=== PATIENT | male | born 1975 | race Two or more races ===

== ENCOUNTER 2023-03-01 08:20 | Day surgery (SDC) | payer MEDICAID ==
[~2023-03-01] VITALS: Ht 182.9 cm; Wt 136.1 kg
[2023-03-01] MEDS ORDERED: SIMETHICONE 40 MG/0.6 ML ML ONE (08:29)
[2023-03-01] MEDS ORDERED: MEPERIDINE 100 MG INJ. 100 MG/ML VIAL ONE (08:30)
[2023-03-01] MEDS ORDERED: MIDAZOLAM HCL 5 MG/5 ML VIAL ONE ×2 (08:30→09:36)
[2023-03-01 09:30] VITALS: O2SAT 98
[2023-03-01 16:19] VITALS: BP_SYST 132; PULSE 81; RESP 21; TEMP 97.8
== END 2023-03-01 11:00 | disposition home or self-care (01) ==
LOC: SDS 08:20 → SMU 08:22 → SDS 11:00
PROVIDERS: ATTEND Internal Medicine Gastroenterology
DX: Z12.11 Encounter for screening for malignant neoplasm of colon (principal); D12.2 Benign neoplasm of ascending colon; K64.8 Other hemorrhoids; I10 Essential (primary) hypertension; E11.9 Type 2 diabetes mellitus without complications; E78.5 Hyperlipidemia, unspecified; E66.9 Obesity, unspecified; Z79.899 Other long term (current) drug therapy
CPT/HCPCS: 45385; 45380; 88305; 99153; 99152; G0378; J2250; J2175